=== PATIENT | female | born 1975 | race American Indian/Alaskan Native ===

== ENCOUNTER 2018-06-18 09:43 | Emergency (ER) | payer OTHER ==
[2018-06-18 10:00] VITALS: BP 165/86
--- NOTE | 2018-06-18 10:44 | Emergency Department Report ---
Minor Respiratory - HPI Chief Complaint: Upper Respiratory Infection Stated Complaint: BODY ACHE Time Seen by Provider: 06/18/18 10:26 Duration: approx 1 week Pain Location: Throat, Ear, Chest Severity: moderate Minor Respiratory: Yes Rhinorrhea, Yes Sore Throat, Yes Able to Tolerate Fluids, Yes Ear Pain (right sided), Yes Cough (yellow sputum), Yes Chest Pain (soreness with cough), Yes Fever (chills), No Sick Contacts, No Hemoptysis, No Shortness of Breath ED Review of Systems ROS: Stated complaint: BODY ACHE Other details as noted in HPI Comment: All other systems reviewed and negative ED Past Medical Hx - Past Medical History Hx Hypertension: Yes - Social History Smoking Status: Never Smoker Substance Use Type: Alcohol - Medications Home Medications: Home Medications Medication Instructions Recorded Confirmed Last Taken Type Azithromycin [Zithromax Z-CHITRA] 500 mg PO ONCE #1 tablet 03/15/13 Unknown Rx Fluticasone Propionate [Flonase] 2 sprays NS DAILY #1 spray.susp 03/15/13 Unknown Rx Loratadine [Claritin] 10 mg PO DAILY #30 tablet 03/15/13 Unknown Rx Prednisone 40 mg PO QDAY #10 tablet 03/15/13 Unknown Rx Promethazine /Codeine 5 ml PO Q6H PRN #120 udc 03/15/13 Unknown Rx [Phenergan/Codeine 6.25-10 mg/5 ml] Cyclobenzaprine [Flexeril] 10 mg PO QHS PRN #10 tablet 01/11/18 Unknown Rx Ibuprofen [Motrin] 600 mg PO Q8H PRN #20 tablet 01/11/18 Unknown Rx ALBUTEROL Inhaler(NF) [VENTOLIN 2 puff IH Q4HRT #1 inha 06/18/18 Unknown Rx Inhaler(NF)] Azithromycin [Zithromax Z-CHITRA] 250 mg PO DAILY #6 tablet 06/18/18 Unknown Rx Benzonatate [Tessalon Perles] 100 mg PO Q8HR #10 capsule 06/18/18 Unknown Rx HYDROcodone/ACETAMINOPHEN 1 each PO Q6HR PRN #12 tablet 06/18/18 Unknown Rx [Hydrocodone-Acetamin 5-325 mg] predniSONE [Deltasone] 20 mg PO QDAY #5 tab 06/18/18 Unknown Rx Minor Respiratory Exam - Exam General: Vital signs noted. No distress. Alert and acting appropriately. HEENT: Yes Moist Mucous Membranes, No Pharyngeal Erythema, No Pharyngeal Exudates, No Rhinorrhea, No Conjuctival Injection, No Frontal Tenderness, No Maxillary Tenderness Ear: Neither TM Bulge, Neither TM Erythema, Neither EAC Pain, Neither EAC Discharge Neck: Yes Supple, No Adenopathy Lungs: Yes Good Air Exchange, Yes Cough, No Wheezes, No Ronchi, No Stridor, No Labored Respirations, No Retractions, No Use of Accessory Muscles, No Other Abnormal Lung Sounds Heart: Yes Regular, No Murmur Abdomen: Yes Normal Bowel Sounds, No Tenderness, No Peritoneal Signs Skin: No Rash, No Edema Neurologic: Alert and oriented, no deficits. Musculoskeletal: Unremarkable. ED Course Vital Signs 06/18/18 09:57 Temperature 98.3 F Pulse Rate 98 H Respiratory 18 Rate Blood Pressure 165/86 O2 Sat by Pulse 96 Oximetry ED Medical Decision Making - Medical Decision Making The patient is a 42-year-old [place] female who has flulike symptoms however the symptoms have been present for greater than 1 week. Patient will be covered with antibiotics for coverage for mycoplasma and a possible walking pneumonia. Patient's lungs are clear to auscultation on exam her O2 sat is within normal limits however early pneumonia cannot be ruled out at this time. I do not believe the patient is condition warrants a chest x-ray.. Patient given meds for symptomatically relief and she'll be discharged home. Critical care attestation.: If time is entered above; I have spent that time in minutes in the direct care of this critically ill patient, excluding procedure time. ED Disposition Clinical Impression: Upper respiratory disease Disposition: - TO HOME OR SELFCARE Is pt being admited?: No Does the pt Need Aspirin: No Condition: Stable Instructions: Upper Respiratory Infection (ED) Referrals: OSMIN CODY MD [Referring] - 3-5 Days Forms: Work/School Release Form(ED) Time of Disposition: 10:43
== END 2018-06-18 11:10 | disposition home or self-care (01) ==
LOC: ED 09:43
DX: J06.9 Acute upper respiratory infection, unspecified (principal); I10 Essential (primary) hypertension
CPT/HCPCS: 99282